=== PATIENT | female | born 1985 | race African-American/Black ===

== ENCOUNTER 2020-03-18 12:06 | Inpatient (IN) | payer OTHER, SELFPAY ==
[2020-03-18] VITALS (91 sets, daily range): BP systolic 110–159; BP diastolic 54–119; PULSE 66–115; TEMP 36.9–37.5; O2SAT 95–100; BMI 38.0
[2020-03-18] MEDS: LACTATED RINGERS 1,000 ML 125 ML IV CONT ×2 (12:50→13:30)
[2020-03-18 12:57] LABS: Basophils Percent Auto 0.3 % (0.2-1.2); Eosinophils Absolute Auto 0.1 K/mm3 (0-0.3); Eosinophils Percent Auto 0.4 % (0-4.4); Hematocrit 28.1 % (37.0-47.0); Hemoglobin 9.8 g/dL (12.0-15.0); Immature Granulocyte Absolute 0.08 K/mm3 (0.00-0.031); Immature Granulocyte Percent A 0.6 % (0-0.5); Lymphocytes Percent Auto 15.4 % (18.3-44.2); Mean Corpuscular HGB Conc 34.9 g/dl (32-36); Mean Corpuscular Hemoglobin 26.6 pg (26-34); Mean Corpuscular Volume 76.2 fl (80-100); Mean Platelet Volume 10.5 fl (7.4-10.4); Monocytes Absolute Auto 0.9 K/mm3 (0.1-0.6); Monocytes Percent Auto 7.6 % (2.6-8.5); Neutrophils Absolute Auto 9.3 K/mm3 (1.3-6.7); Neutrophils Percent Auto 75.7 % (45.5-73.1); Platelet Count Result 242 k/mm3 (150-375); Red Blood Count 3.69 M/mm3 (4.2-5.4); Red Cell Distribution Width 14.2 % (11.5-14.5); White Blood Count 12.3 K/mm3 (4.5-10.0)
[2020-03-18 13:09] LABS: Alanine Aminotransferase 13 U/L (4-35); Albumin Level 3.6 g/dL (3.5-5.1); Alkaline Phosphatase 211 U/L (38-126); Anion Gap 6 mmol/L (8-16); Aspartate Amino Transferase 30 U/L (14-36); Bilirubin,Total 0.5 mg/dL (0.2-1.3); Blood Urea Nitrogen 6 mg/dL (7-17); Carbon Dioxide 22 mmol/L (22-30); Chloride 106 mmol/L (98-107); Estimated Glomerular Filt Rate > 60; Glucose 73 mg/dL (65-105); Potassium 4.2 mmol/L (3.4-5.0); Sodium 134 mmol/L (137-145)
--- NOTE | 2020-03-18 13:35 | WPDANESEPP ---
Anes - Eval Pre Procedure Procedure: Labor epidural Date/Time: 03/18/20 13:35 Surgeon: Shonna Preop Diagnosis: pain during labor Pre Op Diagnosis: Contractions Patient Data Age: 34 Gender: F Height: Weight: Last Vital Signs Pulse 79 03/18/20 13:34 BP 134/78 03/18/20 13:34 Pulse Ox 100 03/18/20 13:35 Allergies Allergy/AdvReac Type Severity Reaction Status Date / Time levofloxacin [From Levaquin] Allergy Hives Verified 03/18/20 12:57 Penicillins Allergy Hives Verified 03/18/20 12:57 Laboratory Tests 03/18/20 03/18/20 03/18/20 12:44 12:44 12:44 WBC 12.3 K/mm3 H K/mm3 (4.5-10.0) RBC 3.69 M/mm3 L M/mm3 (4.2-5.4) Hgb 9.8 g/dL L g/dL (12.0-15.0) Hct 28.1 % L % (37.0-47.0) MCV 76.2 fl L fl (80-100) MCH 26.6 pg pg (26-34) MCHC 34.9 g/dl g/dl (32-36) RDW 14.2 % % (11.5-14.5) Plt Count 242 k/mm3 k/mm3 (150-375) MPV 10.5 fl H fl (7.4-10.4) Immature Gran % (Auto) 0.6 % H % (0-0.5) Neut % (Auto) 75.7 % H % (45.5-73.1) Lymph % (Auto) 15.4 % L % (18.3-44.2) Pender % (Auto) 7.6 % % (2.6-8.5) Eos % (Auto) 0.4 % % (0-4.4) Baso % (Auto) 0.3 % % (0.2-1.2) Lymph # (Auto) 1.90 K/mm3 K/mm3 (0.9-3.2) Pender # (Auto) 0.9 K/mm3 H K/mm3 (0.1-0.6) Eos # (Auto) 0.1 K/mm3 K/mm3 (0-0.3) Baso # (Auto) 0.0 K/mm3 K/mm3 (0.0-0.1) Abs Immat Gran (auto) 0.08 K/mm3 H K/mm3 (0.00-0.031) Absolute Neuts (auto) 9.3 K/mm3 H K/mm3 (1.3-6.7) Absolute Nucleated RBC 0.0 K/mm3 K/mm3 (0.0-0.012) Nucleated RBC % 0.0 % % (0.0-0.2) Sodium Potassium Chloride Carbon Dioxide Anion Gap BUN Creatinine Estim Creat Clear Calc Estimated GFR Glucose Calcium Total Bilirubin AST ALT Alkaline Phosphatase Total Protein Albumin RPR Pending Hep Bs Antigen HIV 1&2 Ab/P24 Ag 4thGn Pending Rubella IgG Antibody 03/18/20 03/18/20 03/18/20 12:44 12:44 12:54 WBC RBC Hgb Hct MCV MCH MCHC RDW Plt Count MPV Immature Gran % (Auto) Neut % (Auto) Lymph % (Auto) Pender % (Auto) Eos % (Auto) Baso % (Auto) Lymph # (Auto) Pender # (Auto) Eos # (Auto) Baso # (Auto) Abs Immat Gran (auto) Absolute Neuts (auto) Absolute Nucleated RBC Nucleated RBC % Sodium 134 mmol/L L mmol/L (137-145) Potassium 4.2 mmol/L mmol/L (3.4-5.0) Chloride 106 mmol/L mmol/L (98-107) Carbon Dioxide 22 mmol/L mmol/L (22-30) Anion Gap 6 mmol/L L mmol/L (8-16) BUN 6 mg/dL L mg/dL (7-17) Creatinine 0.50 mg/dL L mg/dL (0.7-1.0) Estim Creat Clear Calc Not Reportable Estimated GFR > 60 (59 - ) Glucose 73 mg/dL mg/dL (65-105) Calcium 9.0 mg/dL mg/dL (8.4-10.2) Total Bilirubin 0.5 mg/dL mg/dL (0.2-1.3) AST 30 U/L U/L (14-36) ALT 13 U/L U/L (4-35) Alkaline Phosphatase 211 U/L H U/L (38-126) Total Protein 7.0 g/dL g/dL (6.3-8.2) Albumin 3.6 g/dL g/dL (3.5-5.1) RPR Hep Bs Antigen Pending HIV 1&2 Ab/P24 Ag 4thGn Rubella IgG Antibody Pending Patient hx anesthesia problems: none Family hx anesthesia problems: none Exam Day of Procedure 03/18/
[2020-03-18 13:49] LABS: HIV 1/2 Ab P24 Ag Result Negative (Negative)
[2020-03-18 13:58] LABS: Rubella IgG Antibody 31.2 IU/ML
[2020-03-18 14:16] LABS: Hepatitis B Surface Antigen Negative (Negative)
[2020-03-18 15:46] LABS: Amphetamine Screen Urine Negative (Negative); Barbiturate Screen Urine Negative (Negative); Benzodiazepines Screen Urine Negative (Negative); Cannabinoid Screen Urine Negative (Negative); Cocaine Screen Urine Negative (Negative); Methadone Screen Urine Negative (Negative); Opiate Screen Urine Negative (Negative); Phencyclidine Screen Urine Negative (Negative)
[2020-03-18] MEDS: OXYTOCIN 30 UNITS/NS 500 ML 30 UNITS/500 ML BAG 999 UNITS IV CONT (16:20)
--- NOTE | 2020-03-18 16:22 | PM.OBPRVD ---
OB - Delivery Note Procedure Delivery date: 03/18/20 Procedure: vaginal delivery events: No Care, Prolonged Rupture of Membrane, Foul Smelling Amniotic Fluid and Meconium Stained Fluid Intrapartal events: Deceleration Delivery augmentation: rupture of membranes (rupture of forebag at 8 cm dilation) Delivery monitor: external FHT and external uterine Route of delivery: Anesthesia type: Epidural Disposition: no change () [place] Baby Date of : 03/18/20 Time of : 16:06 Weeks of gestation at delivery: 39 Infant gender: Male presentation: vertex position: Left Occiput Anterior Placenta delivery description: Spontaneous cord vessel description: 3 Vessels, Clamped/Cut and Around Body x1 score ten minutes: 9 Narrative: after delivery cord clamped and cut and baby to warmer, manager animal and nurses at
--- NOTE | 2020-03-18 16:26 | P.HP_ITS ---
Obstetrics - Admit Note Admission Note: record reviewed. No pertinent additions to the history and/or any subsequent changes in the physical findings that are not consistent with the expected course of the were found. pt arrived in active labor with SROM time of rupture suspected 03/17/2020. Aminsure + and foul smelling a mniotic fluid, meconium thick. Pt has not had any care, one ultrasound visit at [facility] gave pt her EDC suspect pt is 39 weeks today. labs drawn, pt is PCN allergic and vancomycin started, GBS unknown. Dr. Kilpatrick aware of admission and pt status Additions to the history and/or subsequent changes in the physical findings follow. None.
[2020-03-18] MEDS: ALPRAZolam (*CRX) 0.5 MG TABLET PO (16:27)
[2020-03-18] MEDS: ONDANSETRON INJ 4 MG/2 ML VIAL IV PUSH (16:27)
[2020-03-18] MEDS: OXYTOCIN 30 UNITS/NS 500 ML 30 UNITS/500 ML BAG 125 UNITS IV CONT (16:50)
[2020-03-18] MEDS: IBUPROFEN 600 MG TABLET PO (18:11)
[2020-03-18] MEDS: BENZOCAINE 20% AER SPR (*SP) 56 GM CAN 1 SPRAY TOPICAL (18:12)
[2020-03-18] MEDS: WITCH HAZEL 40 PADS 1 PAD TOPICAL (18:12)
--- NOTE | 2020-03-18 19:04 | LDADM ---
This patient, Ana Van, was admitted to Labor/Delivery/Recovery 104 on 03/18/20 at 12:06. Plans for labor, pain management and were discussed with patient. Patient/family oriented to hospital policies and general routines including ID bracelet, bed and alarms, visiting hours, pain management, procedures, bathroom and other care routines, personal items, smoking policy, room service/diet and guest tray routines, security routines, and visiting hours. Patient/Family are encouraged to report perceived risks to care and to ask questions if they do not understand what they are told or what they should do. See OBIX for further documentation.
--- NOTE | 2020-03-18 20:10 | PC.NURSE ---
1944- pt requesting to leave AMA. Yvette Gordon CNW notified of pt request to leave AMA. both IV's removed, AMA form signed by pt. FOB and pt left OB unit at 2005.
[2020-03-19 09:37] LABS: Rapid Plasma Reagin Non-Reactive (NonReactive)
--- NOTE | 2020-03-27 07:34 | P.HP_ITS ---
H&P: HPI History of Present Illness Date/Time: 03/18/2020 Pt arrived via ambulance, suspected to be around 39 weeks gestation from one us per pt at Hospital. That was only visit, no care. Per pt has been ruptured over 24 hours, unknown gbs, allergic to pcn Chief complaint: Contractions Narrative: Ana Van is a 34 year old female [facility] Social History Social History Smoking status: Current every day smoker Meds Home Medications and Allergies Home Medications Medication Instructions Recorded Confirmed Type No Home Medications 03/18/20 03/18/20 History Allergies Allergy/AdvReac Type Severity Reaction Status Date / Time levofloxacin [From Levaquin] Allergy Hives Verified 03/18/20 12:57 Penicillins Allergy Hives Verified 03/18/20 12:57 Exam Const: General: in distress Other: epidural not relieving discomfort Resp: Effort & Inspection: normal respiratory effort Urinary Catheter: Urinary Catheter: patent and draining Skin: General skin exam: normal color Extrem: General: normal to inspection Psych: Affect: Anxious affect present Assessment and Plan Additional Plan 1. full term 2. no care, unknown gbs will treat with vancomycin 3. Foul smelling brown amniotic fluid dr stone aware and orders recieved
--- NOTE | 2020-03-27 07:38 | P.PNOB_ITS ---
OB - PN: Subj Subjective Date/time seen: 03/18/2020 rn called with pt desire to leave hospital due to baby transfer OB - PN: Obj Data Labs CBC & Chem 7: 03/18/20 12:44 03/18/20 12:44 OB - PN A/P Plan Comments: at this time I did not rec that pt be discharged. pt needed to be [place] tored for bleeding and infection. pt was informed and decided to leave AMA Time Spent With Patient Time: Total time spent is greater than 50% in coordination of care (as documented) at patient's floor/unit and/or counseling patient:
--- NOTE | 2020-03-31 07:27 | PM.OBPNVD ---
OB - PN: Subj Subjective Date/time seen: 03/31/20 07:27 OB - PN: Obj Data Labs CBC & Chem 7: 03/18/20 12:44 03/18/20 12:44 OB - PN A/P Plan Comments: pt signed out AMA after delivery Time Spent With Patient Time: Total time spent is greater than 50% in coordination of care (as documented) at patient's floor/unit and/or counseling patient:
== END 2020-03-18 20:06 | disposition left against medical advice (07) | DRG 560 ==
PROVIDERS: Admitting Provider Obstetrics & Gynecology; Visit Provider Obstetrics & Gynecology
DX: O42.92 Full-term premature rupture of membranes, unspecified as to length of time between rupture and onset of labor (principal); Z37.0 Single live birth; Z3A.39 39 weeks gestation of pregnancy; O36.8330 Maternal care for abnormalities of the fetal heart rate or rhythm, third trimester, not applicable or unspecified; O69.82X0 Labor and delivery complicated by other cord entanglement, without compression, not applicable or unspecified; O77.0 Labor and delivery complicated by meconium in amniotic fluid
CPT/HCPCS: 36415; 80053; 80307; 85025; 86592; 86703; 86762; 86850; 86900; 86901; 87340; A9270; G0432; J2405; J2590; J2795; J3370; J7120

== ENCOUNTER 2023-09-21 14:25 | Outpatient (CLI) | payer MEDICARE, MEDICAID, SELFPAY ==
[2023-09-21 14:45] LABS: Basophils Absolute Auto 0.1 K/mm3 (0.0-0.1); Basophils Percent Auto 0.7 % (0.2-1.2); Eosinophils Absolute Auto 0.7 K/mm3 (0-0.3); Eosinophils Percent Auto 10.1 % (0-4.4); Hematocrit 34.8 % (37.0-47.0); Hemoglobin 11.9 g/dL (12.0-15.0); Immature Granulocyte Absolute 0.02 K/mm3 (0.00-0.031); Immature Granulocyte Percent A 0.3 % (0-0.5); Lymphocytes Absolute Auto 2.25 K/mm3 (0.9-3.2); Lymphocytes Percent Auto 31.6 % (18.3-44.2); Mean Corpuscular HGB Conc 34.2 g/dl (32-36); Mean Corpuscular Hemoglobin 27.3 pg (26-34); Mean Corpuscular Volume 79.8 fl (80-100); Mean Platelet Volume 9.7 fl (7.4-10.4); Monocytes Absolute Auto 0.5 K/mm3 (0.1-0.6); Neutrophils Absolute Auto 3.6 K/mm3 (1.3-6.7); Neutrophils Percent Auto 50.3 % (45.5-73.1); Platelet Count Result 258 k/mm3 (150-375); Red Blood Count 4.36 M/mm3 (4.2-5.4); Red Cell Distribution Width 14.5 % (11.5-14.5); White Blood Count 7.1 K/mm3 (4.5-10.0)
[2023-09-21 16:50] LABS: Alanine Aminotransferase 16 U/L (6-35); Albumin Level 4.5 g/dL (3.5-5.1); Alkaline Phosphatase 66 U/L (38-126); Anion Gap 5 mmol/L (4-12); Aspartate Amino Transferase 42 U/L (14-36); Bilirubin,Total 0.6 mg/dL (0.2-1.3); Blood Urea Nitrogen 10 mg/dL (7-17); Calcium 9.6 mg/dL (8.4-10.2); Carbon Dioxide 30 mmol/L (22-30); Chloride 104 mmol/L (98-107); Estimated Glomerular Filt Rate > 60; Glucose 89 mg/dL (65-110); Potassium 3.9 mmol/L (3.4-5.0); Sodium 139 mmol/L (137-145)
[2023-09-24 14:36] LABS: CA 15-3 52 U/mL (<32)
== END 2023-09-21 14:26 | disposition home or self-care (01) ==
PROVIDERS: Visit Provider Internal Medicine Hematology & Oncology
DX: C79.9 Secondary malignant neoplasm of unspecified site (principal); C50.919 Malignant neoplasm of unspecified site of unspecified female breast
CPT/HCPCS: 36415; 80053; 85025; 86300

== ENCOUNTER 2023-10-20 09:47 | Outpatient (CLI) | payer MEDICARE, MEDICAID, SELFPAY ==
--- NOTE | 2023-10-20 | ECHO_ITS ---
Patient Info Name: Ana Van Age: 38 years : 1985 Gender: Female Ht: 65 in Wt: 153 lbs BSA: 1.80 m2 HR: 100 bpm BP: 137 / 100 mmHg Technical Quality: Fair Exam Date: 10/20/2023 11:04 AM Exam Location: Echo Lab Patient Status: Outpatient Admit Date: 10/20/2023 Staff Ordering Physician: Bora Gavin MD Stitch Bonding Machine Tender Helper: Tay Taveras RDCS Attending Provider: Bora Gavin MD Referring Physician: Romaine STERN; Exam Type: CA echo doppler color flow Study Info Indications C79.9 - Secondary malignant neoplasm of unspecified site C50.919 - Malignant neoplasm of unspecified site of unspecified female breast Complete two-dimensional, color flow and Doppler transthoracic echocardiogram is performed. Strain analysis performed. Summary 1. Complete two-dimensional, color flow and Doppler transthoracic echocardiogram is performed. 2. Left ventricular chamber dimension is normal. 3. Left ventricular systolic function is normal, estimated at 65-70%. 4. The left ventricular diastolic function is normal. 5. E/e' 6 is not elevated. 6. Global longitudinal strain is normal at -17.4%. 7. No pulmonary hypertension, estimated pulmonary arterial systolic pressure is 21 mmHg. Left Ventricle Global longitudinal strain is normal at -17.4%. E/e' 6 is not elevated. Left ventricular chamber dimension is normal. Left ventricular systolic function is normal, estimated at 65-70%. The left ventricular diastolic function is normal. Right Ventricle Right ventricular chamber dimension is normal. Right ventricular systolic function is normal. Left Atria Left atrial chamber dimension is normal. Right Atria Right atrial chamber dimension is normal. Aortic Valve The aortic valve is trileaflet. There is no aortic valve stenosis. There is no aortic valve regurgitation. Pulmonic Valve There is no pulmonic regurgitation. Mitral Valve There is no mitral valve stenosis. There is no mitral valve regurgitation. Tricuspid Valve There is no tricuspid valve regurgitation. No pulmonary hypertension, estimated pulmonary arterial systolic pressure is 21 mmHg. Pericardium/Pleural There is no pericardial effusion. Inferior Vena Cava Normal inferior vena cava with >50% collapse upon inspiration consistent with normal right atrial pressure, 5 mmHg. Aorta The aortic root size at the sinus of Valsalva is normal. Left Ventricular Outflow Tract Name Value Normal LVOT 2D LVOT Diameter 1.9 cm LVOT Doppler LVOT Peak Gradient 3 mmHg LVOT Mean Gradient 2 mmHg LVOT VTI 18 cm LVOT VTI/AV VTI Ratio 0.8 LVOT Stroke Volume 52 ml LVOT CO 3.5 l/min LVOT CI 1.9 l/min/m2 Pulmonic Valve Name Value Normal RVOT Doppler RVOT Peak Gradient 2 mmHg
--- NOTE | ~2023-10-20 | NM_ITS ---
EXAMINATION: NM bone scan whole body DATE: 10/20/2023 13:39 INDICATION: Breast cancer metastases TECHNIQUE: 24.3 mCi Tc-99m HDP was administered intravenously. Delayed whole-body scintigrams were o btained. COMPARISON: CT dated 10/20/2023 FINDINGS: There is diffuse mild increased soft tissue uptake throughout the left breast which corresponds to th e asymmetric swelling of the left breast with skin thickening and numerous enhancing nodules througho ut the left breast likely representing the reported breast cancer. There is mild increased activity a t the S1 segment extending into the right sacral ala and additional foci of increased uptake in the r ight supra-acetabular region and right anterior iliac spine is with corresponding sclerotic bone lesi ons on CT consistent with metastatic disease. There is mild uptake at the T2 spinous process where th ere is an old healed fracture. More typical pattern of mild likely degenerative uptake at the bilater al mid feet and at the bilateral acromioclavicular and sternoclavicular joints. IMPRESSION: 1. Mild uptake at the sacrum and right innominate bone with corresponding sclerotic lesions on CT con sistent with metastatic disease. 2. Diffuse mild soft tissue uptake at the left breast likely related to diffusely infiltrative left b reast cancer. Reviewed, dictated and finalized at location A. IMPRESSION: 1. Mild uptake at the sacrum and right innominate bone with corresponding scler otic lesions on CT consistent with metastatic disease. 2. Diffuse mild soft tissue uptake at the left breast likely related to diffuse ly infiltrative left breast cancer.
--- NOTE | ~2023-10-20 | CT_ITS ---
Clinical Indication: Metastatic breast cancer CT Scan of the Chest, Abdomen, and Pelvis with Contrast: Technique: Contiguous sections were acquired throughout the chest, abdomen, and pelvis after intraven ous administration of 100 cc of Omnipaque 350. Dose reduction technique was used on this scan by uti lizing automated exposure control and iterative reconstruction technique. The dose-length product (DL P) was 983.34 mGy-cm. Findings: No mediastinal/hilar lymphadenopathy. These vascular structures are unremarkable. Minimally prominent right axillary lymph nodes are present, with probable preserved fatty rona. Single left axillary lym ph node measures 11 mm in short axis without definite fatty hilum (axial image 43). There is diffuse skin thickening with multiple suspected irregular mass lesions throughout the left b reast. There is also skin thickening of the right breast, though without definite parenchymal mass. There is no evidence of pleural or pericardial effusion. The lungs are clear. No pulmonary nodules or infiltrates are noted. The liver, spleen, pancreas, adrenals and kidneys are within normal limits. Cholecystectomy clips are present. No evidence of aortic aneurysm. No lymphadenopathy. No bowel obstruction or bowel wall thickening. There is no evidence to suggest acute appendicitis. Urinary bladder is unremarkable. No pelvic mass seen. No ascites. There is sclerotic metastasis essentially at the sacrum at the S1 level, extending more to the right than the left. There are benign-appearing chronic compression deformities of L1 and T8, with several scattered probable Schmorl's nodes in the thoracic spine. Impression: Extensive skin thickening and probable multiple irregular masses throughout the left breast. Findings are most compatible with extensive inflammatory breast cancer the left breast. Single small, though suspicious left axillary lymph node, suspicious for small/early catarina metastasis . Sclerotic metastasis in the sacrum, as detailed above. Mildly prominent right axillary lymph nodes maintain a more normal morphology, and are presumably vitaliy ctive. Reviewed, dictated and finalized at location M. Impression: Extensive skin thickening and probable multiple irregular masses throughout the left breast. Findings are most compatible with extensive inflammatory breast c ancer the left breast. Single small, though suspicious left axillary lymph node, suspicious for small/ early catarina metastasis. Sclerotic metastasis in the sacrum, as detailed above. Mildly prominent right axillary lymph nodes maintain a more normal morphology, and are presumably reactive.
== END 2023-10-20 09:48 | disposition home or self-care (01) ==
PROVIDERS: Visit Provider Internal Medicine Hematology & Oncology
DX: C79.9 Secondary malignant neoplasm of unspecified site (principal); C50.919 Malignant neoplasm of unspecified site of unspecified female breast
CPT/HCPCS: 71260; 74177; 78306; 93306; A9503; Q9967

== ENCOUNTER 2023-10-30 13:52 | Outpatient (CLI) | payer MEDICARE, MEDICAID, SELFPAY ==
--- NOTE | ~2023-10-30 | MR_ITS ---
EXAMINATION: MR brain/brain stem wo/w con DATE: 10/30/2023 15:31 INDICATION: Metastasis from breast cancer. TECHNIQUE: Magnetic resonance imaging (MRI) of the brain and brainstem was performed without and with 14 mL MultiHance intravenous contrast. COMPARISON: None. FINDINGS: There is a 12 mm rim-enhancing mass in right parietal lobe with punctate old blood products and surrounding vasogenic edema. There is increased T2-weighted signal intensity from this area to t he brainstem along the corticospinal tracts, consistent with Wallerian degeneration. There are scatte red areas of nonspecific increased T2-weighted signal intensity in the cerebral white matter, likely secondary to radiation therapy. There is no acute ischemic infarct. The ventricles are normal in size . The orbits are normal. There is mild mucosal thickening in the paranasal sinuses. The mastoid air c ells are normal. IMPRESSION: 1. 12 mm rim-enhancing mass in right parietal lobe, consistent with metastatic disease. Reviewed, dictated and finalized at location A.
== END 2023-10-30 13:53 | disposition home or self-care (01) ==
LOC: ANHIMG 13:55
PROVIDERS: Visit Provider Internal Medicine Hematology & Oncology
DX: C50.919 Malignant neoplasm of unspecified site of unspecified female breast (principal); C79.9 Secondary malignant neoplasm of unspecified site
CPT/HCPCS: 36415; 70553; A9577

== ENCOUNTER 2024-02-22 09:49 | Outpatient (CLI) | payer MEDICARE, MEDICAID, SELFPAY ==
--- NOTE | 2024-02-22 | ECHO_ITS ---
Patient Info Name: Ana Van Age: 38 years : 1985 Gender: Female Ht: 65 in Wt: 153 lbs BSA: 1.80 m2 HR: 75 bpm BP: 107 / 70 mmHg Exam Date: 02/22/2024 10:44 AM Exam Location: Echo Lab Patient Status: Outpatient Admit Date: 02/22/2024 Staff Ordering Physician: Bora Gavin MD Core Extruder: Tay Taveras RDCS Attending Provider: Bora Gavin MD Referring Physician: Romaine STERN; Exam Type: CA echo doppler color flow Study Info Indications Z51.11 - ENCOUNTER FORANTINEOPLASTIC CHEMOTHERAPY C79.9 - Secondary malignant neoplasm of unspecified site Complete two-dimensional, color flow and Doppler transthoracic echocardiogram is performed. Strain analysis performed. Summary 1. Complete two-dimensional, color flow and Doppler transthoracic echocardiogram is performed. 2. Left ventricular chamber dimension is normal. 3. Left ventricular systolic function is normal, estimated at 65-70%. 4. The left ventricular diastolic function is normal. 5. E/e' 7 is not elevated. 6. Global longitudinal strain is normal at -19.8%. 7. Left atrial chamber dimension is mildly enlarged. 8. Linear artifact in the right atrium suggestive of catheter(s), pacemaker lead(s), or ICD lead(s). 9. There is mild tricuspid valve regurgitation. 10. No pulmonary hypertension, estimated pulmonary arterial systolic pressure is 28 mmHg. Left Ventricle E/e' 7 is not elevated. Global longitudinal strain is normal at -19.8%. Left ventricular chamber dimension is normal. Left ventricular systolic function is normal, estimated at 65-70%. The left ventricular diastolic function is normal. Right Ventricle Right ventricular systolic function is normal and with normal TAPSE 2.1 cm. Right ventricular chamber dimension is normal. Left Atria Left atrial chamber dimension is mildly enlarged. Right Atria Linear artifact in the right atrium suggestive of catheter(s), pacemaker lead(s), or ICD lead(s). Right atrial chamber dimension is normal. Aortic Valve The aortic valve is trileaflet. There is no aortic valve stenosis. There is no aortic valve regurgitation. Pulmonic Valve There is no pulmonic regurgitation. Mitral Valve There is no mitral valve stenosis. There is no mitral valve regurgitation. Tricuspid Valve There is mild tricuspid valve regurgitation. No pulmonary hypertension, estimated pulmonary arterial systolic pressure is 28 mmHg. Pericardium/Pleural There is no pericardial effusion. Inferior Vena Cava Normal inferior vena cava with >50% collapse upon inspiration consistent with normal right atrial pressure, 5 mmHg. Aorta The aortic root size at the sinus of Valsalva is normal. Left Ventricular Outflow Tract Name Value Normal LVOT 2D LVOT Diameter 2.0 cm LVOT Doppler LVOT Peak Gradient 5 mmHg LVOT Mean Gradient 2 mmHg LVOT VTI 20 cm LVOT VTI/AV VTI Ratio 0.8 LVOT Stroke Volume 65 ml LVOT CO 4.8 l/min LVOT CI 2.7 l/min/m2 Pulmonic Valve
== END 2024-02-22 09:50 | disposition home or self-care (01) ==
LOC: ANHCARD 09:56
PROVIDERS: Visit Provider Internal Medicine Hematology & Oncology
DX: C50.919 Malignant neoplasm of unspecified site of unspecified female breast (principal); C79.9 Secondary malignant neoplasm of unspecified site; I07.1 Rheumatic tricuspid insufficiency
CPT/HCPCS: 93306

== ENCOUNTER 2024-03-06 11:09 | Emergency (ER) | payer MEDICARE, MEDICAID, SELFPAY ==
--- NOTE | ~2024-03-06 | XR_ITS ---
Clinical Indication: Left-sided weakness and numbness, chemotherapy for breast cancer PA and lateral views of the chest: Comparison: None Findings: Right-sided Mediport in place. The lungs are clear, without evidence of focal consolidation or pleural effusion. Cardiomediastinal silhouette is within normal limits. Bones and soft tissues a re unremarkable. Impression: Clear lungs. Right-sided Mediport. Reviewed, dictated and finalized at location . Impression: Clear lungs. Right-sided Mediport.
--- NOTE | ~2024-03-06 | CT_ITS ---
Non-contrast Head CT History: Left-sided numbness, metastatic breast cancer Technique: Axial non-contrast imaging of the brain was performed. Dose reduction technique was used on this scan by utilizing automated exposure control and iterative reconstruction technique. The dose -length product (DLP) was 605.33 mGy-cm. Findings: There is vasogenic edema at the superior right frontal lobe suggestive of underlying mass. No intracranial hemorrhage identified. No midline shift. The ventricles and subarachnoid spaces are n ormal in size. The calvarium appears normal. The visualized paranasal sinuses and mastoid air cells are clear. Impression: Probable vasogenic edema at the superior right frontal lobe, suspicious for underlying mass lesion. T his is consistent with lesion seen on prior brain MR. Repeat pre and postcontrast MR would be require d to assess for interval change in size of the previously identified lesion. No other significant findings. Reviewed, dictated and finalized at [facility]. Impression: Probable vasogenic edema at the superior right frontal lobe, suspicious for und erlying mass lesion. This is consistent with lesion seen on prior brain MR. Rep eat pre and postcontrast MR would be required to assess for interval change in size of the previously identified lesion. No other significant findings.
--- NOTE | 2024-03-06 12:45 | ECG_ITS ---
Test Date: 2024-03-06 13:42:31 Measurements Intervals [place] Rate: 77 P: 67 MS: 148 QRS: 54 QRSD: 93 T: 64 QT: 400 QTc: 453 Interpretive Statements SINUS RHYTHM LOW QRS VOLTAGE IN PRECORDIAL LEADS CANNOT R/O SEPTAL INFARCT, AGE INDETERMINATE ABNORMAL ECG No previous ECG available for comparison Electronically Signed On 03-06-2024 14:00:35 CDT by Werner Deutsch D.O.
--- NOTE | 2024-03-06 13:16 | PC.NURSE ---
Pt to CT via WC. Will complete EKG when pt returns.
--- NOTE | 2024-03-06 13:18 | ED.EXTPRO ---
HPI - Extremity Problem General Chief complaint: Extremity Problem,Nontraumatic Stated complaint: left hand cramping Time Seen by Provider: 03/06/24 12:27 History of Present Illness HPI Narrative: Patient is a 38-year-old female with history of metastatic breast cancer to her brain who presents ER with left arm numbness. Patient has been getting intermittent treatments for her metastatic cancer over last 2 years. Initial symptoms started with left arm weakness and she reports chronic left arm weakness for 2 years. She reports she has had some increased numbness going up her left arm over last 24 hours however when tested she continues to have feeling. She had missed 5 weeks of chemotherapy today was the 1st day she showed [facility] with the [facility] to receive a. Unfortunately she was late and was not able to receive it. Upon arrival here patient did not initially want to be seen but when told she would not get a bus pass/ride home she decided to be evaluated. Patient is unable to remember when the last time she had an MRI performed of her head. It appears her radiation oncologist had recommended repeat imaging on 12/01/2023 in that position be performed at [facility]. Patient does not know if she went and had that performed. There are no imaging results scanned in. No new headache. No fevers or chills or sweats. No additional concerns. Related Data Home Medications Medication Instructions Recorded Confirmed hydrocodone 5 mg-acetaminophen 325 1 tablet PO Q8H PRN Pain 11/03/23 12/26/23 mg tablet Allergies Allergy/AdvReac Type Severity Reaction Status Date / Time levofloxacin [From Levaquin] Allergy Hives Verified 01/29/24 10:33 Penicillins Allergy Hives Verified 01/29/24 10:33 Review of Systems Review of Systems: All systems reviewed & are unremarkable except as noted in HPI and below Constitutional: Constitutional: Reports no additional constitutional complaints ENT: Reports system reviewed and no additional complaints, except as documented Cardiovascular: Cardiovascular: Reports no additional cardiovascular complaints Respiratory: Respiratory: Reports no additional respiratory complaints Genitourinary: Genitourinary: Reports no additional female genitourinary complaints Neurologic: Denies dizziness, Denies syncope, Reports focal weakness and Reports numbness PMFSH Past Medical History Medical History (Updated 03/06/24 @ 14:27 by Sergey Holm MD) Breast cancer Metastasis to bone Right parietal lobe mass Social History Social History Smoking packs per day: 2 Smoking cigarettes per day: 40.0 Years smoked: 20 Smoking pack-years: 40.00 Smoking status: Current every day smoker Tobacco type: e-cigarettes/vaping Additional smoking assessment comments: stopped smoking cigarettes in 2020 Spiritual care concerns: No Exam Narrative: GENERAL: Well-appearing, well-nourished, and in no acute distress. HEAD: Normocephalic, atraumatic. EYES: PERRL and EOMI. ENT: Mucous membranes moist. CHEST: Clear to auscultation. No respiratory distress. HEART: Regular rate and rhythm. Normal peripheral pulses. ABDOMEN: Soft, nontender, nondistended. EXTREMITIES: 3/5 strength with flexion and extension at the left elbow and left wrist. Normal strength at the shoulder. Atrophy in the left hand with 3/5 strength with nurse care manager. Normal strength of the right upper extremity and bilateral lower extremities. Normal finger-nose testing in the right upper extremity but not the left but patient reports this is chronic due to weakness. Normal [id number] testing. SKIN: Warm, dry, no rash. NEURO: See extremity exam. Chronic weakness and coordination issues in left arm due to brain metastases. Patient with intact sharp touch above the wrist throughout the left arm. Alert and oriented x3. PSYCH: Normal mood and affect. Course Course Emergency Course: Discussed case with Dr. Gavin. Tre de [place] o
[2024-03-06 13:26] LABS: Basophils Absolute Auto 0.1 K/mm3 (0.0-0.1); Basophils Percent Auto 0.8 % (0.2-1.2); Eosinophils Absolute Auto 0.4 K/mm3 (0-0.3); Eosinophils Percent Auto 5.3 % (0-4.4); Hematocrit 32.4 % (37.0-47.0); Hemoglobin 11.1 g/dL (12.0-15.0); Immature Granulocyte Absolute 0.01 K/mm3 (0.00-0.031); Immature Granulocyte Percent A 0.1 % (0-0.5); Lymphocytes Absolute Auto 2.14 K/mm3 (0.9-3.2); Lymphocytes Percent Auto 25.6 % (18.3-44.2); Mean Corpuscular HGB Conc 34.3 g/dl (32-36); Mean Corpuscular Hemoglobin 26.7 pg (26-34); Mean Corpuscular Volume 78.1 fl (80-100); Mean Platelet Volume 10.1 fl (7.4-10.4); Monocytes Absolute Auto 0.7 K/mm3 (0.1-0.6); Neutrophils Percent Auto 60.2 % (45.5-73.1); Platelet Count Result 230 k/mm3 (150-375); Red Blood Count 4.15 M/mm3 (4.2-5.4); Red Cell Distribution Width 14.9 % (11.5-14.5); White Blood Count 8.4 K/mm3 (4.5-10.0)
[2024-03-06 13:34] LABS: Alanine Aminotransferase 15 U/L (6-35); Albumin Level 4.1 g/dL (3.5-5.1); Alkaline Phosphatase 65 U/L (38-126); Anion Gap 9 mmol/L (4-12); Aspartate Amino Transferase 55 U/L (14-36); Bilirubin,Total 0.3 mg/dL (0.2-1.3); Blood Urea Nitrogen 8 mg/dL (7-17); Calcium 9.3 mg/dL (8.4-10.2); Carbon Dioxide 29 mmol/L (22-30); Chloride 101 mmol/L (98-107); Estimated Glomerular Filt Rate > 60; Glucose 89 mg/dL (65-110); Potassium 3.4 mmol/L (3.4-5.0); Sodium 139 mmol/L (137-145)
[2024-03-06 13:41] LABS: INR 0.9; Prothrombin Time 13.1 Seconds (11.1-14.7)
[2024-03-06 13:42] LABS: Partial Thromboplastin Time 29.6 Seconds (22.3-36.8)
[2024-03-06 13:44] LABS: Troponin I < 0.012 ng/mL (0.000-0.034)
[2024-03-06] MEDS: predniSONE 20 MG TABLET 40 MG PO (14:45)
== END 2024-03-06 15:21 | disposition home or self-care (01) ==
PROVIDERS: Emergency Provider Emergency Medicine
DX: C50.919 Malignant neoplasm of unspecified site of unspecified female breast (principal); C79.31 Secondary malignant neoplasm of brain; C79.51 Secondary malignant neoplasm of bone; F17.210 Nicotine dependence, cigarettes, uncomplicated
CPT/HCPCS: 36415; 70450; 71046; 80053; 84484; 85025; 85610; 85730; 93005; 99284; J7512

== ENCOUNTER 2024-03-26 14:51 | Outpatient (CLI) | payer MEDICARE, MEDICAID, SELFPAY ==
--- NOTE | ~2024-03-26 | CT_ITS ---
Clinical Indication: Metastatic breast cancer CT Scan of the Chest, Abdomen, and Pelvis with Contrast: Technique: Contiguous sections were acquired throughout the chest, abdomen, and pelvis after intraven ous administration of 100 cc of Omnipaque 350. Dose reduction technique was used on this scan by victor hugo dilling automated exposure control and iterative reconstruction technique. The dose-length product (DL P) was 732.88 mGy-cm. Comparison: 10/20/2023 Findings: Diffuse skin thickening and multiple masses throughout the left breast is progressed from p rior exam. There is now also diffuse skin thickening and probable multiple masses increased density t hroughout the right breast as well. Findings are compatible with extensive bilateral inflammatory marcel ast cancer or other extensive bilateral breast cancer. There is involvement of the left pectoralis ma derek muscle. There are multiple enlarged right axillary lymph nodes, compatible with right axillary catarina metastat ic disease, with largest node measuring 2.0 x 1.7 cm in size. No definite left axillary lymphadenopat hy. No mediastinal or hilar lymphadenopathy seen. Mediastinal vascular structures are unremarkable. There is no evidence of pleural or pericardial effusion. The lungs are clear. No pulmonary nodules or infiltrates are noted. The liver, spleen, pancreas, adrenals and kidneys are within normal limits. Cholecystectomy clips are present. No evidence of aortic aneurysm. No lymphadenopathy. No bowel obstruction or bowel wall thickening. There is no evidence to suggest acute appendicitis. Urinary bladder is unremarkable. No pelvic mass evident. No ascites. Stable extensive sclerotic regio n of the sacrum with the S1 level. Stable compression deformities of T8 and L1. Stable presumed Schmo rl's nodes in the spine. Impression: Interval development of extensive carcinomatous involvement of the right breast, possibly inflammator y breast cancer. Progression of extensive left breast cancer since prior exam. Worsening right axillary lymphadenopathy, compatible with catarina metastatic disease. Stable sclerotic lesion of S1/sacrum. Reviewed, dictated and finalized at [facility]. Impression: Interval development of extensive carcinomatous involvement of the right breast , possibly inflammatory breast cancer. Progression of extensive left breast can cer since prior exam. Worsening right axillary lymphadenopathy, compatible with catarina metastatic dise ase. Stable sclerotic lesion of S1/sacrum.
== END 2024-03-26 14:52 | disposition home or self-care (01) ==
PROVIDERS: Visit Provider Internal Medicine Hematology & Oncology
DX: C50.911 Malignant neoplasm of unspecified site of right female breast (principal); M89.8X8 Other specified disorders of bone, other site; R59.0 Localized enlarged lymph nodes
CPT/HCPCS: 71260; 74177; Q9967

== ENCOUNTER 2024-05-08 13:21 | Outpatient (CLI) | payer MEDICARE, MEDICAID, SELFPAY ==
--- NOTE | ~2024-05-08 | CT_ITS ---
CLINICAL INDICATION: Metastatic breast cancer COMPARISON: 03/26/2024 and 10/20/2023. TECHNIQUE: An enhanced CT of the abdomen and pelvis was performed utilizing multislice spiral Basic-Fit ue reconstructed at 0.63mm slice thickness. Coronal and sagittal reconstructions were performed. Th is CT examination was performed utilizing dose reduction techniques. DLP: 483.36 mGy-cm FINDINGS/OBSERVATIONS: Lung:The lungs are clear. No pulmonary nodules are detected Mediastinum: No pathologically enlarged or morphologically suspicious lymph nodes are identified with in the mediastinum or within the bilateral axilla. The heart is of normal size, without pericardial effusion. Small hiatal hernia is present. Soft tissues of the chest: Diffuse skin thickening with multiple nodules within the bilateral breast tissue, similar in appearance to previous examination dated 03/26/2024 with progression from 10/20/2023 . Bones of the chest: No lytic or blastic lesions are identified within the bilateral ribs or thoracic spine. Redemonstration of rounded lucencies within the base of the sternum, unchanged from prior. Extensive bilateral axillary lymph nodes are identified, right greater than left. Liver: The liver enhances homogeneously and is not enlarged measuring 16 cm in longitudinal dimension . Gallbladder and biliary system: The gallbladder is surgically absent. Pancreas: The pancreas enhances homogeneously without ductal dilatation. Spleen: The spleen is not enlarged, and enhances homogeneously measuring 9 cm in longitudinal dimensi on. Kidneys: The bilateral kidneys enhance symmetrically without hydronephrosis or renal calculi. Adrenal glands: Unremarkable Gastrointestinal tract: Fecal stasis within the colon. Appendix:The appendix is not definitively visualized. However, no pericecal inflammatory change is id entified suggest the presence of acute appendicitis. Vasculature: Unremarkable Lymph nodes: Bilateral axillary lymphadenopathy, right greater than left. No abnormal lymph nodes wit hin the retroperitoneum or at the root of the mesentery. Pelvic structures:The bladder is decompressed. The uterus is retroverted and antral flexed and otherwise unremarkable. Body wall and musculoskeletal: A small fat-containing umbilical hernia is present. Sclerosis of the S1 vertebral body with disc reduction and fracture deformity anteriorly, unchanged f rom prior. No additional sclerotic lesions are appreciated within the pelvis or remaining vertebral b odies. IMPRESSION: Persistent skin thickening and nodularity within the bilateral breast tissue with morphologically allyson picious and pathologically enlarged lymph nodes within the bilateral axilla. Bony disease within the sacrum, for which a metastatic lesion is suspected. No additional abnormal findings within the chest, abdomen or pelvis. No cross-sectional imaging findings to suggest progression of disease. Reviewed, dictated and finalized at location [facility]. OLOGIST IMPRESSION: Persistent skin thickening and nodularity within the bilateral breast tissue wi th morphologically suspicious and pathologically enlarged lymph nodes within th e bilateral axilla. Bony disease within the sacrum, for which a metastatic lesion is suspected. No additional abnormal findings within the chest, abdomen or pelvis. No cross-sectional imaging findings to suggest progression of disease.
== END 2024-05-08 13:22 | disposition home or self-care (01) ==
LOC: ANHIMG 13:28
PROVIDERS: PCP Family Medicine; Visit Provider Internal Medicine Hematology & Oncology
DX: C79.9 Secondary malignant neoplasm of unspecified site (principal); C50.919 Malignant neoplasm of unspecified site of unspecified female breast
CPT/HCPCS: 71260; 74177; Q9967

== ENCOUNTER 2024-05-16 10:09 | Outpatient (CLI) | payer MEDICARE, MEDICAID, SELFPAY ==
--- NOTE | 2024-05-16 | ECHO_ITS ---
Patient Info Name: Ana Van Age: 38 years : 1985 Gender: Female Ht: 65 in Wt: 143 lbs BSA: 1.73 m2 HR: 71 bpm BP: 115 / 87 mmHg Technical Quality: Fair Exam Date: 05/16/2024 10:27 AM Exam Location: Echo Lab Patient Status: Outpatient Admit Date: 05/16/2024 Staff Ordering Physician: Bora Gavin MD Mine Foreman: Tay Taveras RDCS Attending Provider: Bora Gavin MD Referring Physician: Romaine STERN; Exam Type: CA echo doppler color flow Study Info Indications C79.9 - Secondary malignant neoplasm of unspecified site C50.919 - Malignant neoplasm of unspecified site of unspecified female breast Complete two-dimensional, color flow and Doppler transthoracic echocardiogram is performed. Strain analysis performed. Summary 1. Complete two-dimensional, color flow and Doppler transthoracic echocardiogram is performed. 2. Left ventricular chamber dimension is normal. 3. Left ventricular systolic function is normal, estimated at 60-65%. 4. There is mild concentric increased left ventricular wall thickness. 5. The left ventricular diastolic function is normal. 6. E/e' 8 is minimally elevated. 7. Global longitudinal strain is normal at -18.5%. 8. Left atrial chamber dimension is mildly enlarged. 9. There is mild aortic valve sclerosis. 10. There is trace mitral valve regurgitation. 11. There is mild tricuspid valve regurgitation. 12. No pulmonary hypertension, estimated pulmonary arterial systolic pressure is 29 mmHg. Left Ventricle E/e' 8 is minimally elevated. Global longitudinal strain is normal at -18.5%. Left ventricular chamber dimension is normal. Left ventricular systolic function is normal, estimated at 60-65%. There is mild concentric increased left ventricular wall thickness. The left ventricular diastolic function is normal. Right Ventricle Right ventricular systolic function is normal and with normal TAPSE 1.8 cm. Right ventricular chamber dimension is normal. Left Atria Left atrial chamber dimension is mildly enlarged. Right Atria Right atrial chamber dimension is normal. Aortic Valve The aortic valve is trileaflet. There is mild aortic valve sclerosis. There is no aortic valve stenosis. There is no aortic valve regurgitation. Pulmonic Valve There is no pulmonic regurgitation. Mitral Valve There is no mitral valve stenosis. There is trace mitral valve regurgitation. Tricuspid Valve There is mild tricuspid valve regurgitation. No pulmonary hypertension, estimated pulmonary arterial systolic pressure is 29 mmHg. Pericardium/Pleural There is no pericardial effusion. Inferior Vena Cava Normal inferior vena cava with >50% collapse upon inspiration consistent with normal right atrial pressure, 5 mmHg. Aorta The aortic root size at the sinus of Valsalva is normal. Left Ventricular Outflow Tract Name Value Normal LVOT 2D LVOT Diameter 2.0 cm LVOT Doppler LVOT Peak Gradient 5 mmHg LVOT Mean Gradient 2 mmHg LVOT VTI 21 cm LVOT VTI/AV VTI Ratio 0.9 LVOT Stroke Volume 68 ml LVOT CO 4.6 l/min LVOT CI 2.7 l/min/m2 Pulmonic Valve Name Value Normal PV Doppler PV Peak Gradient 3 mmHg PV Regurgitation Doppler MI Peak End Diastolic Velocity 58 cm/s Mitral Valve Name Value Normal MV Doppler MV Decel [place] 290 cm/s2 MV PHT 82 ms MV Area (PHT) 2.7 cm2 4.0-5.0 MV Diastolic Function MV E Peak Velocity 82 cm/s MV A Peak Velocity 60 cm/s MV E/A 1.4 MV Decel Time 284 ms Tricuspid Valve Name Value Normal TV Regurgitation Doppler TR Peak Velocity 244 cm/s TR Peak Gradient 19 mmHg Estimated PAP/RSVP RA Pressure 5 mmHg <=5 PA Systolic Pressure 29 mmHg <36 RV Systolic Pressure 29 mmHg <36 Aorta Name Value Normal Ascending Aorta Ao Root Diameter (MM) 2.5 cm Ao Root Diam Index (MM) 1.4 cm/m2 Aortic Valve Name Value Normal AV Doppler AV Peak Velocity 125 cm/s AV Peak Gradient 6 mmHg AV Mean Gradient 3 mmHg AV VTI 24 cm AV Area (Cont Eq VTI) 2.8 cm2 >=3.0 AV Area (Cont Eq Landon) 2.9 cm2 AV Regurgitation 2D LVOT Area 3.3 cm2 Ventricles Name Value Normal LV Dimensions 2D/MM IVS Diastolic Thickness (2D) 0.8 cm 0.6-1.0 IVS Diastole Thickness (MM) 0.7 cm 0.6-0.9 LVID Diastole (2D) 4.6 cm 3.8-5.2 LVID Diastole (MM) 4.8 cm 3.8-5.2 LVIW Diastolic Thickness (2D) 0.7 cm 0.6-0.9 LVIW Diastolic Thickness (MM) 0.8 cm 0.6-0.9 LVID Systole (2D) 2.7 cm 2.2-3.5 LVID Systole (MM) 2.5 cm 2.2-3.5 LVOT Diameter 2.0 cm LV Mass (2D Cubed) 112.63 g 67.00-162.00 LV Mass Index (2D Cubed) 65 g/m2 43-95 Relative Wall Thickness (2D) 0.32 LV Mass (MM Cubed) 125.86 g 67.00-162.00 LV Mass Index (MM Cubed) 73 g/m2 43-95 Relative Wall Thickness (MM) 0.35 LV Fractional Shortening/Ejection Fraction 2D/MM LV Fractional Shortening (2D) 41 % 27-45 LV Fractional Shortening (MM) 47 % 27-45 LV EF (MM Teicholz) 79 % 54-74 LV EF (2D Teicholz) 72 % 54-74 LV Diastolic Volume (4C MOD) 85 ml LV EF (4C MOD) 66 % LV Diastolic Volume (2C MOD) 67 ml LV EF (2C MOD) 60 % LV Diastolic Volume (BP MOD) 76 ml 46-106 LV Diastolic Volume Index (BP MOD) 44 ml/m2 29-61 LV Systolic Volume (BP MOD) 28 ml 14-42 LV Systolic Volume Index (BP MOD) 16 ml/m2 8-24 LV EF (BP MOD) 63 % 54-74 LV Diastolic Length (4C) 7.7 cm LV Systolic Length (4C) 6.3 cm LV Stroke Volume (4C MOD) 56 ml Atria Name Value Normal LA Dimensions LA Dimension (MM) 3.6 cm 2.7-3.8 LA Volume (4C A-L) 67 ml LA Volume (BP A-L) 65 ml RA Dimensions RA Area (4C) 13.2 cm2 <=18.0 EchoPAC Name Value Normal RISHI AA peak sys SL (AWMA) 15.2 % AAS peak sys SL (AWMA) 21.5 % AI peak sys SL (AWMA) 23.4 % AL peak sys SL (AWMA) 23.9 % peak sys SL (AWMA) 23.8 % AVC (AWMA) 381 ms BA peak sys SL (AWMA) 12.2 % BAS peak sys SL (AWMA) 18.2 % BI peak sys SL (AWMA) 19.7 % BL peak sys SL (AWMA) 14.7 % BP peak sys SL (AWMA) 17.7 % BS peak sys SL (AWMA) 14.5 % G peak SL(A2C) (AWMA) 18.5 % G peak SL(A4C) (AWMA) 18.6 % G peak SL(APLAX) (AWMA) 18.5 % G peak SL(Avg) (AWMA) 18.6 % MA peak sys SL (AWMA) 19.0 % MAS peak sys SL (AWMA) 26.6 % NM peak sys SL (AWMA) 21.6 % ML peak sys SL (AWMA) 18.5 % MP peak sys SL (AWMA) 14.7 % MS peak sys SL (AWMA) 17.1 % Report Signatures
== END 2024-05-16 10:10 | disposition home or self-care (01) ==
PROVIDERS: PCP Family Medicine; Visit Provider Internal Medicine Hematology & Oncology
DX: C79.9 Secondary malignant neoplasm of unspecified site (principal); C50.919 Malignant neoplasm of unspecified site of unspecified female breast; I34.0 Nonrheumatic mitral (valve) insufficiency; I35.1 Nonrheumatic aortic (valve) insufficiency; I36.1 Nonrheumatic tricuspid (valve) insufficiency
CPT/HCPCS: 93306